=== PATIENT | female | born 1975 | race Caucasian/White ===

== ENCOUNTER 2017-03-15 10:52 | Emergency (ER) | payer OTHER ==
[~2017-03-15 10:52] MED LIST: Iopamidol 370 76% 100 ML VIAL ONE
[2017-03-15] MEDS ORDERED: Ondansetron HCl/PF 4 MG/2 ML Vial ONE (11:31)
[2017-03-15 11:35] LABS: #Basophils 0.1 thou/uL (0.0-0.2); #Eosinphils 0.1 thou/uL (0.0-0.7); #Lymphocytes 1.6 thou/uL (1.20-3.40); #Monocytes 0.5 thou/uL (0.11-0.59); #Neutrophils 4.9 thou/uL (1.40-6.50); %Basophils 1.4 % (0.0-1.0); %Eosinophils 1.6 % (0.0-10.0); %Monocytes 7.3 % (0.0-10.0); %Neutrophils 67.7 % (42.0-75.0); Hemoglobin 14.3 g/dL (12.0-16.0); Mean Corpuscular HGB CONC 30.6 g/dL (32.0-36.0); Mean Corpuscular Hemoglobin 27.3 pg (27.0-31.0); Platelet Count 262 thou/uL (130-400); RBC Distribution Width 12.4 % (11.5-14.5); Red Blood Cell (RBC) Count 5.23 mill/uL (4.20-5.40); White Blood Cell (WBC) Count 7.2 thou/uL (4.8-10.8)
[2017-03-15 11:49] LABS: ALT (SGPT) 16 U/L (8-55); AST (SGOT) 17 U/L (5-34); Albumin 4.4 g/dL (3.5-5.0); Alkaline Phosphatase 71 U/L (40-150); Anion Gap 14 mmol/L (10-20); BUN (Urea Nitrogen) 11 mg/dL (7.0-18.7); Bilirubin, Total 0.7 mg/dL (0.2-1.2); Calc. Creatinine Clearance 0 mL/min (70-130); Calcium 9.8 mg/dL (7.8-10.44); Carbon Dioxide 25 mmol/L (22-29); Chloride 104 mmol/L (98-107); Estimated GFR-MDRD 77; Glucose 82 mg/dL (70-105); Lipase 23 U/L (8-78); Potassium 3.7 mmol/L (3.5-5.1); Protein, Total 8.4 g/dL (6.0-8.3); Sodium 139 mmol/L (136-145)
[2017-03-15] MEDS ORDERED: Ketorolac Tromethamine 30 MG/ML VIAL ONE (11:51)
[2017-03-15 11:55] LABS: Bilirubin Negative (Negative); Blood, Urine Negative (Negative); Clarity Clear (Clear); Glucose, Urine (Dipstick) Negative (Negative); Leukocyte Negative (Negative); Nitrite Negative (Negative); Protein, Urine (Dipstick) Negative (Neg-Trace); Urobilinogen 0.2 mg/dL (0.2-1.0)
[2017-03-15 11:56] LABS: Specific Gravity, Urine 1.005 (1.002-1.036)
[2017-03-15] MEDS ORDERED: diphenhydrAMINE 50 MG/ML VIAL ONE (12:28)
--- NOTE | 2017-03-15 12:45 | CT ---
CT ABDOMEN AND PELVIS WITH CONTRAST: HISTORY: Abdominal pain. History of hysterectomy and LAP band surgery. COMPARISON: CT abdomen and pelvis in 2015. FINDINGS: Lung bases are clear. No pericardial effusion. Liver, gallbladder, and pancreas unremarkable. The spleen is enlarged measuring over 14.5 cm in yandel th. There is normal PHI angle of the LAP band. No hydronephrosis. The appendix is visualized and is normal. No dilated loops of large or small bowel. A right adnexal corpus luteal cyst is present. Aortoiliac contour is nonaneurysmal. No adenopathy. There are phleboliths in the pelvis. IMPRESSION: No acute inflammatory process of abdomen and pelvis. Normal appendix. POS: [facility]
== END 2017-03-15 13:35 | disposition home or self-care (01) ==
LOC: SCSER 10:52
DX: R10.31 Right lower quadrant pain (principal); I10 Essential (primary) hypertension; F41.9 Anxiety disorder, unspecified; F32.9 Major depressive disorder, single episode, unspecified; F17.210 Nicotine dependence, cigarettes, uncomplicated; Z79.899 Other long term (current) drug therapy
CPT/HCPCS: 74177; 80053; 81003; 83690; 85025; 96361; 96374; 96375; J1200; J1885; J2405

== ENCOUNTER 2017-12-25 16:59 | Inpatient (IN) | payer OTHER ==
[2017-12-25 17:35] LABS: #Basophils 0.1 thou/uL (0.0-0.2); #Eosinphils 0.2 thou/uL (0.0-0.7); #Monocytes 0.7 thou/uL (0.11-0.59); #Neutrophils 6.3 thou/uL (1.40-6.50); %Basophils 0.9 % (0.0-1.0); %Eosinophils 2.2 % (0.0-10.0); %Lymphocytes 21.8 % (21.0-51.0); %Monocytes 7.7 % (0.0-10.0); %Neutrophils 67.5 % (42.0-75.0); Mean Corpuscular HGB CONC 31.9 g/dL (32.0-36.0); Mean Corpuscular Hemoglobin 27.5 pg (27.0-31.0); Mean Corpuscular Volume 86.2 fL (78.0-98.0); Mean Platelet Volume 7.4 fL (7.4-10.4); Platelet Count 229 thou/uL (130-400); RBC Distribution Width 12.3 % (11.5-14.5); Red Blood Cell (RBC) Count 4.75 mill/uL (4.20-5.40); White Blood Cell (WBC) Count 9.4 thou/uL (4.8-10.8)
[2017-12-25 17:47] LABS: ALT (SGPT) 18 U/L (8-55); AST (SGOT) 16 U/L (5-34); Albumin 4.3 g/dL (3.5-5.0); Alkaline Phosphatase 73 U/L (40-150); Anion Gap 12 mmol/L (10-20); BUN (Urea Nitrogen) 11 mg/dL (7.0-18.7); Bilirubin, Total 0.3 mg/dL (0.2-1.2); Calc. Creatinine Clearance 0 mL/min (70-130); Calcium 9.8 mg/dL (7.8-10.44); Carbon Dioxide 24 mmol/L (22-29); Chloride 105 mmol/L (98-107); Estimated GFR-MDRD 72; Globulin 3.7 g/dL (2.4-3.5); Glucose 96 mg/dL (70-105); Lipase 24 U/L (8-78); Potassium 3.8 mmol/L (3.5-5.1); Sodium 137 mmol/L (136-145)
[2017-12-25] MEDS ORDERED: Morphine 4 MG/ML VIAL ONE (17:59)
[2017-12-25] MEDS ORDERED: Pantoprazole 40 MG VIAL ONE (18:01)
[2017-12-25] MEDS ORDERED: Famotidine/PF 20 mg/2ml Vial ONE (18:01)
[2017-12-25] MEDS ORDERED: Ondansetron PF 4 MG/2 ML Vial ONE (18:01)
[2017-12-25 18:17] LABS: CKMB 0.7 ng/mL (0-6.6); Troponin I Less than 0.010 ng/mL (< 0.028)
[2017-12-25 18:32] LABS: Bilirubin Negative (Negative); Blood, Urine Negative (Negative); Clarity Clear (Clear); Glucose, Urine (Dipstick) Negative (Negative); Leukocyte Negative (Negative); Nitrite Negative (Negative); Protein, Urine (Dipstick) Negative (Neg-Trace); Specific Gravity, Urine 1.008 (1.002-1.036); Urobilinogen 0.2 mg/dL (0.2-1.0)
--- NOTE | 2017-12-25 18:48 | RAD ---
ACUTE ABDOMINAL SERIES: INDICATIONS: Epigastric abdominal pain. COMPARISON: 09/21/2012 FINDINGS: There is a suspected nipple shadow overlying the left lower lobe. No suspicious pulmonary nodules se en within this region on CT abdomen and pelvis dated 03/15/2017. The right lung is clear. There is a gastric band in place, projecting in the expected position. The catheter appears intact to the por t. The bowel gas pattern demonstrates numerous moderately dilated loops of small bowel within the up per central abdomen, with differential air-fluid levels on the upright projection. No acute osseous abnormality is evident. IMPRESSION: 1. Findings suspicious for partial small bowel obstruction involving loops of mid to proximal small bowel within the upper abdomen. 2. Gastric band. 3. Nodular density overlying the left lower lobe may reflect a nipple shadow. A repeat chest radiog raph with nipple markers is recommended. CODE T POS: [facility]
[2017-12-25] MEDS ORDERED: Ondansetron ODT 4 MG TAB PO PRN (21:22)
[2017-12-25] MEDS ORDERED: Acetaminophen 325 MG TAB PO PRN (21:22)
[2017-12-25 22:15] VITALS: BMI 33.7
[2017-12-25] MEDS ORDERED: Morphine 2 MG/ML SYRINGE SLOW IVP PRN (22:45)
[2017-12-25] MEDS ORDERED: Famotidine 20 MG TAB PO SCH (22:45)
[2017-12-25] MEDS: Sodium Chloride 0.9% 1,000 ML IV SCH (23:01)
[2017-12-26 05:15] LABS: Anion Gap 6 mmol/L (10-20); BUN (Urea Nitrogen) 9 mg/dL (7.0-18.7); Calc. Creatinine Clearance 153 mL/min (70-130); Calcium 8.3 mg/dL (7.8-10.44); Carbon Dioxide 26 mmol/L (22-29); Chloride 109 mmol/L (98-107); Estimated GFR-MDRD 77; Glucose 90 mg/dL (70-105); Potassium 3.7 mmol/L (3.5-5.1); Sodium 137 mmol/L (136-145)
[2017-12-26 05:21] LABS: #Eosinphils 0.2 thou/uL (0.0-0.7); #Lymphocytes 1.9 thou/uL (1.20-3.40); #Monocytes 0.6 thou/uL (0.11-0.59); #Neutrophils 3.7 thou/uL (1.40-6.50); %Basophils 0.4 % (0.0-1.0); %Eosinophils 2.8 % (0.0-10.0); %Lymphocytes 29.6 % (21.0-51.0); %Monocytes 9.6 % (0.0-10.0); %Neutrophils 57.6 % (42.0-75.0); Hemoglobin 11.8 g/dL (12.0-16.0); Mean Corpuscular HGB CONC 31.7 g/dL (32.0-36.0); Mean Corpuscular Hemoglobin 28.4 pg (27.0-31.0); Mean Corpuscular Volume 89.8 fL (78.0-98.0); Mean Platelet Volume 7.9 fL (7.4-10.4); Platelet Count 209 thou/uL (130-400); RBC Distribution Width 12.4 % (11.5-14.5); Red Blood Cell (RBC) Count 4.15 mill/uL (4.20-5.40); White Blood Cell (WBC) Count 6.5 thou/uL (4.8-10.8)
[2017-12-26] MEDS ORDERED: Famotidine 20 MG TAB PO SCH (09:00)
[2017-12-26] MEDS ORDERED: Enoxaparin Sodium 40 MG/0.4 ML SYRINGE SC SCH (09:00)
[2017-12-26] MEDS ORDERED: Famotidine/PF 20 mg/2ml Vial SLOW IVP SCH (09:00)
[2017-12-26] MEDS: Acetaminophen 650 MG in Premix Bag 1 BAG IVPB PRN ×2 (09:12→16:38)
[2017-12-26] MEDS: Sodium Chloride 0.9% 1,000 ML IV SCH (09:13)
--- NOTE | 2017-12-26 10:15 | HP ---
PRIMARY CARE PHYSICIAN: Dr. Charles HISTORY OF PRESENT ILLNESS: Ms. Kuhn is a 42-year-old female who presented to the emergency room yesterday for epigastric abdominal pain and mid back pain. She reports pain has been ongoing for the last 3 weeks, has been intermittent, but progressively getting worse. The patient reports eating makes it better. No changes to the pain with position or movement. The patient reports pressing at the site of pain makes it better. The patient had a history of a bleeding ulcer 5 years ago, but reports this pain is different. Reports nausea, vomiting x4. Denies any blood in vomit and has diarrhea as well, 6 times 2017 and x2 on 12/25/2017. Also denies any bright blood or melena with diarrhea. Reports that she saw Dr. Charles last week for this pain, was given diclofenac, but stopped taking it because she does have a history of the bleeding ulcer. Reports that Zantac, Tums and Pepcid are not helping. The patient received an acute abdominal series x-ray in the ED findings suspicious for a partial small-bowel obstruction involving loops of mid to proximal small bowel within the upper abdomen. She does have a history of a gastric band that was placed in 04/2015 and denies any issues relating to it. Reports weight loss over 100 pounds. The patient denies any nausea, vomiting overnight, but does report being nauseated currently. Denies any diarrhea in the last 12 hours. The patient was admitted for observation and a surgery consult. PAST MEDICAL HISTORY: Hypertension, which she was able to go off medications after her weight loss with the lap band. Bleeding ulcer 5 years ago, EGD was performed PAST SURGICAL HISTORY: Lap band in 04/2015. The patient has left wrist surgery , tonsillectomy, hysterectomy. PSYCHIATRIC HISTORY: Reports anxiety and depression. SOCIAL HISTORY: She smokes cigarettes, a half a pack a day. Drinks socially. Denies drug use. FAMILY HISTORY: Mother had a brain aneurysm. REVIEW OF SYSTEMS: CONSTITUTIONAL: Denies chills, denies fever. EYES: Denies changes in eye vision, denies pain. ENT: Denies ear pain, denies sore throat. CARDIOVASCULAR: Denies chest pain, palpitations. RESPIRATORY: Denies cough or shortness of breath. GASTROINTESTINAL: Reports epigastric and right upper quadrant pain. Reports diarrhea. Reports nausea and vomiting. GENITOURINARY: Female, denies dysuria or hematuria. MUSCULOSKELETAL: Denies neck pain. Reports mid back pain. SKIN: Denies rash, skin changes. NEUROLOGIC: Denies focal weakness, sensory changes. HEME: Denies abnormal blood clotting. PSYCHIATRIC: Denies current anxiety or depression. PHYSICAL EXAMINATION: VITAL SIGNS: Temperature 98.1, pulse 76, respirations 20, pulse ox is 98 on room air, blood pressure 119/79. CONSTITUTIONAL: The patient appears nontoxic, does appear to be in some mild pain distress. HEENT: Head is atraumatic, normocephalic. ENT: Mucous membranes are moist. NECK: Trachea is midline. No tenderness. Full range of motion. RESPIRATORY/CHEST: Breath sounds are equal, symmetrical movement. Chest pain is equal. No wheezing, rales or rhonchi noted. CARDIAC: S1, S2 was heard, normal rhythm. ABDOMEN: Female. The patient is tender to epigastric right upper quadrant. Bowel sounds are normal x4. No distention. No peritoneal signs. BACK: Tenderness to primarily right paraspinal mid back. No CVA tenderness. EXTREMITIES: Upper extremity, no cyanosis, no edema. Lower extremities; full range of motion. No cyanosis, no edema. NEUROLOGIC: Speech is normal. No focal neurological deficits. SKIN: Dry, normal color. PSYCHIATRIC: Normal affect. Acute abdomen series as described in the HPI has findings suspicious of a partial small-bowel obstruction involving the loops of mid and proximal small bowel within the upper abdomen. A gastric band is appreciated. Does have some nodular density overlying the left lower lobe which may reflect a nipple shadow. LABORATORY DATA: Lipase is 24, sodium 137, potassium 3.8, chloride 105, carbon dioxide is 24, anion gap is 12, BUN is 11, creatinine 0.87, estimated GFR is 72 , glucose is 96, calcium is 9.8, globulin is 3.7, alkaline phosphatase 73, AST is 16, ALT is 18. CBC is 9.4, hemoglobin 13, hematocrit 40.9, platelet count is 229. First troponin is negative. Urinalysis negative. ASSESSMENT AND PLAN: 1. Epigastric pain, partial small-bowel obstruction. We will make the patient n.p.o. We will have a General Surgery consult. Will treat pain with pain medications. Hospital course will depend on clinical findings. [facility]ITAL[facility]
--- NOTE | 2017-12-26 11:20 | ULT ---
RIGHT UPPER QUADRANT ULTRASOUND: Comparison: None. History: Right upper quadrant pain. Epigastric abdominal pain. Technique: Multiplanar grayscale and color doppler images were obtained in a right upper quadrant abd ominal ultrasound. FINDINGS: The liver demonstrates increased echogenicity without focal lesions or intrahepatic ductal dilatation . There may be a small amount of sludge in the gallbladder. There is no gallbladder wall thickening o r pericholecystic fluid. The common bile duct is normal measuring 2 mm. Pancreas cannot be visualized. The right kidney is normal in echogenicity without hydronephrosis or c alculus and measures 12.3 cm in length. IMPRESSION: Fatty liver. POS: [facility]
[2017-12-26] MEDS: Fentanyl 100 MCG/2 ML VIAL SLOW IVP PRN ×2 (12:20→18:52)
[2017-12-26] MEDS: D5 1/2 NS w/20 mEq KCL 1,000 ML IV SCH (15:36)
[2017-12-26] MEDS ORDERED: Iopamidol 370 76% 100 ML VIAL ONE (15:54)
--- NOTE | 2017-12-26 15:54 | PDOC.EVN ---
Event Note - Event Note Event Note: care discussed with Jolly Suresh CONTROL ROOM TECHNICIAN. Gen Surg in consult. status changed to inpt. agree with plans.
--- NOTE | 2017-12-26 19:36 | CT ---
CT OF THE ABDOMEN AND PELVIS WITH IV CONTRAST: 12/26/17 INDICATION: Abdominal pain, nausea and vomiting. COMPARISON: Prior exam dated 03/15/17. FINDINGS: There is stable gastric band and splenomegaly. The spleen measures up to 15 cm which is relatively st able to a comparison dated 03/15/17. There is fatty infiltration of the liver. The pancreas and adrenal glands appear within normal limits. The kidneys are normal appearing. No hayley e fluid or enlarged lymph nodes are evident. There is a mild amount of retained stool within the colo n. There is a normal appendix in the right lower quadrant. Small amount of free fluid is seen within the pelvis. There are a few scattered diverticula involving the colon. The small bowel is within norm al caliber. No definite acute osseous abnormality is evident. IMPRESSION: 1. No CT explanation for the patient's nausea, vomiting and abdominal pain. 2. Stable mild splenomegaly. 3. Fatty liver. 4. Gastric band. 5. Mild amount of retained stool within the colon. 6. Colon diverticulosis. 7. Nonspecific tiny amount of small free fluid within the pelvis. POS: [facility]
[2017-12-27] MEDS: D5 1/2 NS w/20 mEq KCL 1,000 ML IV SCH ×4 (00:44→19:38)
[2017-12-27] MEDS: Fentanyl 100 MCG/2 ML VIAL SLOW IVP PRN ×6 (00:45→21:59)
[2017-12-27] MEDS: Ondansetron PF 4 MG/2 ML Vial IVP PRN ×4 (01:43→17:55)
--- NOTE | 2017-12-27 04:04 | CON ---
DATE OF CONSULTATION: 12/26/2017 REASON FOR CONSULTATION: Abdominal pain. HISTORY OF PRESENT ILLNESS: Ms. Kuhn is a 42-year-old woman with a past surgical history of a gastr ic band placed 4 years ago in [place]. She has had problems with pain in her back for several weeks a nd pain in her abdomen with nausea for about 1 week, it got worse last night, so she decided to come to the hospital and an acute abdominal series was suggestive of some dilated loops of proximal small bowel concerning for obstruction or ileus. She was admitted and placed on bowel rest, but her abdomi nal pain and nausea has persisted. She states that she has been passing a lot of gas, in fact, more than usual and that her bowel movements have been normal for her. She states that ever since her gas tric band. She does not really have formed bowel movements, but that they are loose. She has had so me episodes of diarrhea with multiple episodes of loose bowel movements each day, but this seems to h ave slowed down. She did have a bowel movement yesterday which was not very large. She went to see her doctor late last week because of her pain getting worse and was given diclofenac, but stopped kai t because she has a history of bleeding ulcers. She has not noticed any blood or melena in her stool and she has not thrown up any blood; however, she states that it is mostly just mucousy stuff. She has been maintaining her weight since her band she lost about 100 pounds, but gained about 25 pounds back; however, her weight has been stable since then. She has not had any fevers or chills and has n ot had any ill contacts. PAST MEDICAL HISTORY: Bleeding ulcers, hypertension and morbid obesity, none of which are currently an issue. PAST SURGICAL HISTORY: Lap band, wrist surgery, tonsillectomy, and hysterectomy. SOCIAL HISTORY: She does smoke about half pack a day, drinks rarely and does not use any illicit aj gs. FAMILY HISTORY: Noncontributory. REVIEW OF SYSTEMS: Ten-system review of systems is negative except per HPI. PHYSICAL EXAMINATION: VITAL SIGNS: The patient has been afebrile since her admission with heart rate in the 60s, respirato ry rate of 18, 100% saturated on room air, blood pressure 119/55. GENERAL: Reveals a healthy appearing woman in no acute distress, although she does appear anxious an d was intermittently tearful during the interview when describing her current illness. HEENT: Unremarkable. NECK: Supple, without lymphadenopathy or thyroid nodules. HEART: Regular in its rate and rhythm without murmurs, rubs or gallops. LUNGS: Clear to auscultation bilaterally. ABDOMEN: Soft and nondistended. She is diffusely tender to palpation in the upper abdomen, but the lower abdomen is nontender. She has normal bowel sounds and is not tympanitic. No palpable masses o r hernias. EXTREMITIES: Warm and well perfused without edema. NEUROLOGIC: No focal deficits. PSYCHIATRIC: Alert, oriented, and appropriate. LABORATORY DATA: Unremarkable. Her white count is normal. Her electrolytes are normal and her LFTs are normal. Her UA was clear. Her acute abdominal series showed some gas filled loops of bowel in the upper abdomen, which appeared to be either stomach or proximal small bowel; however, there was ga s in the colon as well. ASSESSMENT: Partial small-bowel obstruction seems relatively less likely given the large amount of g as that the patient has been passing and the fact that she has been having multiple bowel movements w hich are normal consistency for her. I recommended a CT scan to further evaluate this with contrast as the patient is able to tolerate this. She does still have her gallbladder, so cholecystitis is wi thin the differential diagnosis, but she did get an ultrasound of her gallbladder which was fairly un remarkable. She states that she was somewhat tender when they did the ultrasound, but she did not jernigan ve any wall thickening or pericholecystic fluid and only a small amount of sludge in the gallbladder. I think a HIDA scan is reasonable to further evaluate her gallbladder. If her CT does not show diana dence of obstruction or other explanation for her pain and nausea and if the HIDA scan is normal, the n Gastroenterology will need to be involved.
--- NOTE | 2017-12-27 11:30 | PDOC.GSPN ---
Surgery Progress Note: Subj - Subjective Narrative: Patient was placed on a diet last night after her CT came back normal but had epigastric pain and nausea all night long after eating. She has a HIDA scan ordered for this morning. She states that she is passing a lot of gas but also burping. Minimally tender to palpation in the epigastric area without rigidity rebound or guarding. Assessment/plan: Abdominal pain and nausea of unclear etiology. No evidence of persistent obstruction on CT scan and no evidence of cholecystitis or cholelithiasis on gallbladder ultrasound although she did have possibly a small amount of sludge. HIDA scan is pending. If this is normal I would recommend gastroenterology evaluation. Dr. Haywood will be following her for the next few days as I am out of town. Surgery Progress Note: Obj - Vital signs Vital signs: Vital Signs - Most Recent Temp Pulse Resp BP Pulse Ox 97.9 F 69 16 107/69 100 12/27/17 08:00 12/27/17 08:00 12/27/17 08:00 12/27/17 08:00 12/27/17 08:00 Surgery Progress Note: Results - Labs Result Diagrams: 12/26/17 04:33 12/26/17 04:33
--- NOTE | 2017-12-27 13:50 | NM ---
HEPATOBILIARY SCAN: Date: 12/27/17 HISTORY: Right upper quadrant pain. RADIOPHARMACEUTICAL: 5.5 mCi technetium-99m mebrofenin injected intravenously. FINDINGS: There is good tracer extraction by the liver with prompt excretion into the biliary tract and small b owel loops, and normal filling of the gallbladder. The calculated gallbladder ejection fraction following an oral fatty meal measures 76%. IMPRESSION: Normal exam. POS: [facility]
--- NOTE | 2017-12-27 14:53 | PDOC.PN ---
- Subjective Encounter Start Date: 12/27/17 Encounter Start Time: 14:52 Subjective: still complaining of abd pain/nausea - Objective MAR Reviewed: Yes Vital Signs & Weight: Vital Signs (12 hours) Temp Pulse Resp BP Pulse Ox 12/27/17 12:40 98.7 F 72 18 128/82 100 12/27/17 08:00 97.9 F 69 16 107/69 100 12/27/17 03:50 98.2 F 83 16 122/80 96 Weight Weight 234 lb 12.8 oz I&O: 12/26/17 12/27/17 12/28/17 06:59 06:59 06:59 Intake Total 858 Output Total 700 Balance 158 Result Diagrams: 12/26/17 04:33 12/26/17 04:33 Phys Exam - Physical Examination Neck: no JVD Respiratory: clear to auscultation bilateral Cardiovascular: RRR, no significant murmur Gastrointestinal: soft, non-tender, no distention, positive bowel sounds Musculoskeletal: no edema Dx/Plan (1) Abdominal pain Code(s): R10.9 - UNSPECIFIED ABDOMINAL PAIN Status: Acute Qualifiers: Abdominal location: generalized Qualified Code(s): R10.84 - Generalized abdominal pain (2) Nausea & vomiting Code(s): R11.2 - NAUSEA WITH VOMITING, UNSPECIFIED Status: Acute Qualifiers: Vomiting type: unspecified Vomiting Intractability: unspecified Qualified Code(s): R11.2 - Nausea with vomiting, unspecified (3) HTN (hypertension) Code(s): I10 - ESSENTIAL (PRIMARY) HYPERTENSION Status: Acute Qualifiers: Hypertension type: essential hypertension Qualified Code(s): I10 - Essential (primary) hypertension - Plan HIDA scan normal. CT sf abd-mild spenomegaly, fatty liver, lap band -: cbc, cmp, lipase Nl -: consult GI per Gen Surg recommendation * .
[2017-12-27] MEDS: Pantoprazole 40 MG VIAL IVP SCH (21:59)
--- NOTE | 2017-12-27 23:45 | CON ---
DATE OF CONSULTATION: 12/27/2017 REASON FOR CONSULTATION: Recent abdominal pain. HISTORY: Mrs. Kuhn is a 42-year-old female who was admitted to the hospital 2 days ago with a 3-wee k history of having upper abdominal pain localizing mostly to the epigastrium with radiation to the m id back. The pain initially started on the back and going to the front. She described the pain as w axing and waning and intermittent, characterized as mostly dull pressure, but at times becomes very s evere. She has had some nausea, vomiting. There has not been any indication of GI bleeding such as coffee-ground emesis or melenic stools. The patient prior GI medical history is notable for a lap ba nd placement in [place] approximately 3 years ago with resultant 100-pound weight loss. She also repo rtedly had a bleeding ulcer 5 years ago that was treated at [facility] in [facility] and required blood transfusion at that time. The current pain is not precipitated by eating or activity. Pain at times is improved with eating. She does smoke half a pack of cigarettes a day . She infrequently consumes alcohol. She has no NSAID usage. Thus far, ultrasound performed showed changes consistent with fatty liver with normal gallbladder and common bile duct measured [address] was essentially unremarkable. She had a HIDA scan this morning that showed an ejection fraction of 76% followed by Ensure intake. There is no wor sening of the pain with gallbladder contraction. PAST MEDICAL HISTORY: 1. Hypertension, reportedly resolved with weight loss. 2. Peptic ulcer disease with bleeding 5 years ago, required transfusion. 3. Gastric lap band placement 3 years ago in [place]. 4. Status post hysterectomy/tonsillectomy and wrist surgery. ALLERGIES: None. MEDICATIONS AT HOME: None. SOCIAL HISTORY: The patient is . She smokes on the average 1 pack of cigarettes every 3 days . Infrequently consume alcohol. No illicit drug use. FAMILY HISTORY: Negative for any known GI problem, liver disease or GI malignancy. REVIEW OF SYSTEMS: A 10-point review of systems did not show any other pertinent positive or negativ e. PHYSICAL EXAMINATION: VITAL SIGNS: Temperature is 97.5, blood pressure 136/89, pulse of 71. GENERAL: She is alert, conversant, does not appear in any distress. HEENT: Shows anicteric sclerae. Oropharynx clear. NECK: Supple. CARDIOVASCULAR: Shows normal S1, S2. Regular rate and rhythm. CHEST: Shows normal breath sounds. ABDOMEN: Mildly protuberant, but no distention. There is no elicit tenderness to deep palpation. T here is no palpable mass or organomegaly. She has active bowel sounds. EXTREMITIES: Shows no edema. LABORATORY DATA: WBC 6.5, hemoglobin 11.8, platelet count is 209,000. Electrolytes within normal ra nge. Creatinine 0.82, bilirubin 0.3, AST of 16, ALT of 18, alkaline phosphatase 73, lipase of 24. ASSESSMENT: 1. Upper abdominal pain/epigastric pain with radiation to the back, dull pressure and at times burni ng in quality with variable intensity. Ultrasound and CT of the abdomen have been essentially unrema rkable and has not offered any explanation for her pain. She did have a history of lap band placemen t 3 years ago and a history of bleeding peptic ulcer disease 5 years ago. Etiology of the pain is no t certain at this point. We will need to exclude recurrent peptic ulcer disease or erosions of the l ap band. 2. Negative gallbladder evaluation with ultrasound and HIDA scan at the present time. Gallbladder p athology is still possible, but appears unlikely at the present time. 3. History of bleeding peptic ulcer disease 5 years ago. Helicobacter pylori status unknown. 4. History of lap band placement 3 years ago. RECOMMENDATIONS: 1. Diagnostic upper endoscopy tomorrow. 2. The patient requests a regular diet tonight, this would be fine given that she tolerated chicken broth this afternoon and there is no evidence of obstruction on imaging studies or based on clinical symptoms. 3. Would start on empiric PPI, pantoprazole 40 mg IV daily. 4. Further recommendation to follow pending endoscopic finding.
[2017-12-28] MEDS: D5 1/2 NS w/20 mEq KCL 1,000 ML IV SCH ×2 (04:19→12:43)
[2017-12-28] MEDS: Fentanyl 100 MCG/2 ML VIAL SLOW IVP PRN ×4 (04:40→21:00)
[2017-12-28] MEDS: Pantoprazole 40 MG VIAL IVP SCH ×2 (08:18→20:59)
[2017-12-28] MEDS: Ondansetron PF 4 MG/2 ML Vial IVP PRN (08:19)
--- NOTE | 2017-12-28 09:04 | PDOC.PN ---
- Subjective Encounter Start Date: 12/28/17 Encounter Start Time: 09:03 Subjective: stil has abd discomfort - Objective MAR Reviewed: Yes Vital Signs & Weight: Vital Signs (12 hours) Temp Pulse Resp BP Pulse Ox 12/28/17 08:00 98.1 F 75 16 113/75 100 12/28/17 04:00 98.9 F 93 20 117/73 98 12/28/17 00:00 98.6 F 73 18 130/79 96 Weight Weight 234 lb 12.8 oz I&O: 12/27/17 12/28/17 12/29/17 06:59 06:59 06:59 Intake Total 3842 Balance 3842 Result Diagrams: 12/26/17 04:33 12/26/17 04:33 Phys Exam - Physical Examination Neck: no JVD Respiratory: clear to auscultation bilateral Cardiovascular: RRR, no significant murmur Gastrointestinal: soft, non-tender, no distention, positive bowel sounds Musculoskeletal: no edema Dx/Plan (1) Abdominal pain Code(s): R10.9 - UNSPECIFIED ABDOMINAL PAIN Status: Acute Qualifiers: Abdominal location: generalized Qualified Code(s): R10.84 - Generalized abdominal pain (2) Nausea & vomiting Code(s): R11.2 - NAUSEA WITH VOMITING, UNSPECIFIED Status: Acute Qualifiers: Vomiting type: unspecified Vomiting Intractability: unspecified Qualified Code(s): R11.2 - Nausea with vomiting, unspecified (3) HTN (hypertension) Code(s): I10 - ESSENTIAL (PRIMARY) HYPERTENSION Status: Acute Qualifiers: Hypertension type: essential hypertension Qualified Code(s): I10 - Essential (primary) hypertension - Plan iv ppi -: EGD today * .
[2017-12-28] MEDS ORDERED: Levofloxacin 500 mg/D5W 100 ml Premix Bag ONE (14:45)
--- NOTE | 2017-12-28 15:20 | PRG ---
DATE OF SERVICE: 12/28/2017 HISTORY OF PRESENT ILLNESS: Marisa Kuhn seen today for Dr. Webster. Ms. Kuhn is to have an upper endoscopy today by Dr. Finley. The patient has been having epigastric pain, often postprandial, asso ciated with nausea, bloating, belching, indigestion, pressure. On exam, she is tender in her right u pper quadrant. Gallbladder ultrasound shows gallbladder sludge. Bile duct is of normal caliber. Li marleni function tests are normal. HIDA scan ejection fraction is normal. CAT scan of abdomen and pelvi s is normal. Abdominal x-rays reveal properly oriented band. The patient saw Dr. Ga, [facility] approximately a year ago having her band adjusted. She has no recollection of how much saline is in her band reservoir. She states she swallows without restriction but has had ep isodes of upper abdominal pain, nausea with back radiation for the past 3 weeks intermittently. CAT scan of the abdomen and pelvis, ultrasound, and HIDA scan have only revealed gallbladder sludge. OBJECTIVE: LUNGS: Clear to auscultation. CARDIAC: Regular rate and rhythm without murmur or gallop. ABDOMEN: Soft, tenderness in right upper quadrant with mild guarding. EXTREMITIES: Unremarkable. ASSESSMENT AND PLAN: 1. Chronic cholecystitis with gallbladder sludge. I would recommend laparoscopic video cholecystect vinod tomorrow. She is to have an upper endoscopy today by Dr. Finley. After that operation, the patie nt could be discharged home. 2. Diet and activity postoperatively as tolerated. No lifting restrictions. She could return to wo rk next Monday.
[2017-12-28] MEDS ORDERED: Promethazine HCl 25 MG/ML VIAL SLOW IVP PRN (17:00)
[2017-12-28] MEDS ORDERED: Ondansetron HCl/PF 4 MG/2 ML Vial IVP PRN (17:00)
[2017-12-28] MEDS ORDERED: Promethazine HCl 25 MG/ML VIAL IM PRN (17:00)
--- NOTE | 2017-12-28 21:24 | OP ---
DATE OF PROCEDURE: 12/28/2017 PROCEDURE: Esophagogastroduodenoscopy with biopsy. PREOPERATIVE DIAGNOSIS: Epigastric abdominal pain. PROCEDURE IN DETAIL: Informed consent was obtained from the patient. She was sedated with total int ravenous anesthesia. The bite block was placed and the endoscope was advanced easily to the second p ortion of the duodenum and retroflexion was performed in the stomach. The esophagus was normal. The GE junction was normal. There was the impression from the gastric band and the gastric cardia just a centimeter or two below the GE junction. This appears to be in appropriate position and the mucosa within it had no abnormalities. The stomach was normal including retroflexed views. The pylorus wa s normal. There was a 1 cm cratered ulcer in the first portion of the duodenum on the lateral wall. The second portion of the duodenum was normal. Biopsies were obtained from the gastric antrum and b mago to rule out H. pylori. IMPRESSION: 1. A 1 cm cratered duodenal ulcer in the first portion of the duodenum. 2. Gastric band is in appropriate position with the impression in the cardia of the stomach just bel ow the gastroesophageal junction. 3. Otherwise normal esophagogastroduodenoscopy. RECOMMENDATIONS: 1. Pantoprazole 40 mg by mouth daily. 2. Smoking cessation. 3. Await histopathology, treat H. pylori if positive as an outpatient.
[2017-12-29] MEDS: Fentanyl 100 MCG/2 ML VIAL SLOW IVP PRN ×2 (01:36→06:03)
[2017-12-29] MEDS: D5 1/2 NS w/20 mEq KCL 1,000 ML IV SCH (04:52)
[2017-12-29] MEDS: Ondansetron PF 4 MG/2 ML Vial IVP PRN (06:01)
[2017-12-29] MEDS ORDERED: Lorazepam 0.5 MG TAB PO PRN (07:41)
[2017-12-29] MEDS ORDERED: Lactated Ringer's 1,000 ML IV SCH (08:00)
[2017-12-29] MEDS: Pantoprazole 40 MG VIAL IVP SCH (08:41)
[2017-12-29] MEDS ORDERED: Midazolam HCl 2 mg/2 ml Vial ONE ×2 (11:20→12:54)
[2017-12-29] MEDS ORDERED: Levofloxacin 500 mg/D5W 100 ml Premix Bag ONE (11:26)
[2017-12-29] MEDS ORDERED: Bupivacaine HCl 0.5%/Epinephrine 1:200,000/PF 30 ml Vial ONE (11:46)
[2017-12-29] MEDS ORDERED: Fentanyl 100 MCG/2 ML VIAL ONE ×4 (11:52→13:43)
[2017-12-29] MEDS ORDERED: traMADol HCl 50 MG TAB PO PRN ×3 (12:25→15:22)
[2017-12-29] MEDS ORDERED: Acetaminophen 500 MG TAB PO PRN (12:25)
[2017-12-29] MEDS ORDERED: Promethazine HCl 25 MG/ML VIAL IM PRN (12:42)
[2017-12-29] MEDS ORDERED: Promethazine HCl 25 MG/ML VIAL SLOW IVP PRN (12:42)
[2017-12-29] MEDS ORDERED: Ondansetron HCl/PF 4 MG/2 ML Vial IVP PRN (12:42)
[2017-12-29] MEDS ORDERED: HYDROmorphone 2 MG/ML VIAL SLOW IVP PRN (12:42)
[2017-12-29] MEDS ORDERED: PACU-Morphine 4MG/ML VIAL SLOW IVP PRN (12:42)
[2017-12-29] MEDS ORDERED: Meperidine HCl/PF 25 MG/ML VIAL SLOW IVP PRN (12:42)
[2017-12-29] MEDS ORDERED: Morphine Sulfate 2 MG/ML SYRINGE SLOW IVP PRN (12:42)
[2017-12-29] MEDS ORDERED: Promethazine HCl 25 MG/ML VIAL ONE (13:06)
--- NOTE | 2017-12-29 13:14 | OP ---
DATE OF PROCEDURE: 12/29/2017 PREOPERATIVE DIAGNOSES: Gallbladder sludge, chronic cholecystitis, bariatric surgery status, laparos copic sleeve gastrectomy, tobacco abuse, duodenal ulcer 1 cm, esophagogastroduodenoscopy by Dr. Finley . PROCEDURE: Laparoscopic video cholecystectomy. SURGEON: Nimesh Haywood M.D. ANESTHESIA: General. Local of 0.5% Marcaine with epinephrine. INDICATIONS: The patient abuses tobacco. Encouraged to stop smoking. She has a duodenal ulcer, 1 c m. PPIs prescribed. Laparoscopic cholecystectomy undertaken. PROCEDURE IN DETAIL: The patient was taken to the operating room where under general anesthesia, abd omen was prepared with ChloraPrep and draped in routine fashion. Local anesthetic was infiltrated in to the skin and subcutaneous tissue about each port site. Infraumbilical incision made and pneumoper itoneum to 15 mmHg obtained with the Veress needle, replacing it with a 5 port and laparoscope insert ed. Right subxiphoid incision was made and a 11 port placed. Right subcostal incision was made mid clavicular anterior axillary lines and 5 ports placed. Liver appeared to be normal. Fundus of gallb ladder grasped and reflected cephalad. Infundibulum grasped and reflected laterally. Cystic artery and duct dissected free. Critical view obtained. Cystic artery and duct doubly clipped proximally, divided and gallbladder dissected free from the liver bed obtaining good hemostasis prior to division of final peritoneal attachments. Gallbladder and contents removed and submitted to Pathology. Good hemostasis ensured with the cautery. Irrigant and pneumoperitoneum evacuated. All the instruments removed and all skin incisions approximated with interrupted subdermal 4-0 Monocryl and DermaGlue peter lied.
[2017-12-29 15:26] VITALS: BP 124/63; TEMP 97.6
--- NOTE | 2017-12-29 16:03 | DIS ---
TRANSFER OF CARE DATE OF ADMISSION: 12/26/2017 DATE OF DISCHARGE: 12/29/2017 PHYSICIAN: Lisbet Charles M.D. FINAL DIAGNOSES: Chronic cholecystitis, gastric ulcer, tobacco abuse, hypertension, status post stacy annamarie banding procedure. DISCHARGE MEDICATIONS: Protonix 40 mg a day, Ultram 50 mg 1-2 every 6 hours as needed for pain, Zofr an oral dissolving tablet 4 mg p.o. q.6 hours. p.r.n. nausea. ALLERGIES: PENICILLINS. DIET: Bariatric. PENDING AT THE TIME OF DISCHARGE: Pathology of the gallbladder. CODE STATUS: FULL. HOSPITAL COURSE: The patient admitted with abdominal pain. Her initial studies; CBC normal. Comp m etabolic profile normal. CT scan of the abdomen and pelvis, stable, mild splenomegaly, fatty liver, gastric band, seen in consultation by Dr. Chaparro Webster because of the small bowel obstruction. She had a HIDA scan which was unremarkable. Consultation with Dr. Ruben Maloney EGD revealed a gastric ulc er. Dr. Nimesh Haywood on-call for Dr. Webster. We examined her, took her history, made a diagnosis of chronic cholecystitis with sludge. On 12/29/2017, she was taken to the operating room and had a laparoscopic cholecystectomy. She is now awake and alert. Vital signs are stable. Abdomen is benig n. Dr. Haywood has written prescriptions and discharge for today. She is being discharged for follow up with Dr. Haywood in 2-3 weeks. It was also recommended that she see her primary care provider.
== END 2017-12-29 16:20 | disposition home or self-care (01) | DRG 418 ==
LOC: SCSER 16:59 → OBSVTOIN 21:26 → 2SW 21:26 → ONC 12-26 15:29
PROVIDERS: ADMIT Internal Medicine; ATTEND Internal Medicine
PROC: 0DB78ZX Excision of Stomach, Pylorus, Via Natural or Artificial Opening Endoscopic, Diagnostic (ICD-10-PCS; 2017-12-28)
PROC: 0FT44ZZ Resection of Gallbladder, Percutaneous Endoscopic Approach (ICD-10-PCS; principal; 2017-12-29)
DX: K81.1 Chronic cholecystitis (principal); K56.600 Partial intestinal obstruction, unspecified as to cause; I10 Essential (primary) hypertension; R10.84 Generalized abdominal pain; R11.2 Nausea with vomiting, unspecified; R16.1 Splenomegaly, not elsewhere classified; K76.0 Fatty (change of) liver, not elsewhere classified; Z68.33 Body mass index [BMI] 33.0-33.9, adult; F17.210 Nicotine dependence, cigarettes, uncomplicated; F41.9 Anxiety disorder, unspecified; F32.9 Major depressive disorder, single episode, unspecified; Z90.3 Acquired absence of stomach [part of]; K26.9 Duodenal ulcer, unspecified as acute or chronic, without hemorrhage or perforation; K82.9 Disease of gallbladder, unspecified; Z98.84 Bariatric surgery status; K25.9 Gastric ulcer, unspecified as acute or chronic, without hemorrhage or perforation; E66.01 Morbid (severe) obesity due to excess calories
CPT/HCPCS: 36415; 74022; 74177; 76705; 78227; 80048; 80053; 81003; 82553; 83690; 84484; 85025; 87086; 88304; 88305; 88312; 93005; 96361; 96374; 96375; 96376; A9537; C9113; J0131; J0670; J1956; J2250; J2270; J2405; J2550; J3010; S0028

== ENCOUNTER 2018-01-02 14:59 | Inpatient (IN) | payer OTHER ==
[~2018-01-02 14:59] MED LIST changes: +ISOVUE-370 76%-LOCM 1 ML ONE; -Iopamidol 370 76% 100 ML VIAL ONE; +Iopamidol 370 76% 50 ML VIAL FS ONE
[2018-01-02] MEDS ORDERED: Ondansetron ODT 4 MG TAB PO PRN ×2 (15:34→18:47)
[2018-01-02] MEDS ORDERED: Ondansetron PF 4 MG/2 ML Vial SLOW IVP PRN (15:34)
[2018-01-02] MEDS ORDERED: Acetaminophen 1,000 MG in Premix Bag 1 BAG IVPB PRN (15:35)
[2018-01-02] MEDS ORDERED: Lactated Ringer's 1,000 ML IV SCH (15:45)
[2018-01-02] MEDS ORDERED: Acetaminophen 1,000 MG in Premix Bag 1 BAG IVPB SCH (15:45)
[2018-01-02] MEDS ORDERED: Ketorolac Tromethamine 30 MG/ML VIAL IVP SCH (15:45)
[2018-01-02 16:04] VITALS: BMI 34.4
[2018-01-02] MEDS: Lactated Ringer's 1,000 ML IV SCH (16:15)
[2018-01-02] MEDS ORDERED: traMADol HCl 50 MG TAB PO PRN ×2 (18:45)
[2018-01-02] MEDS ORDERED: Acetaminophen 500 MG TAB PO PRN ×2 (18:45→18:47)
[2018-01-02] MEDS ORDERED: Magnesium Citrate 300 ML BOT PO SCH (18:45)
--- NOTE | 2018-01-02 19:35 | CT ---
CONTRAST ENHANCED CT IMAGES OF THE ABDOMEN AND PELVIS 01/02/18 HISTORY: Patient with abdominal pain. Recent cholecystectomy. Contrast enhanced CT images of the abdomen and pelvis is obtained after administration of IV and oral contrast. CT images demonstrate the lung bases to be unremarkable. Postoperative gas seen in the periumbilical subcutaneous fat. The patient has had a previous gastric lap band. The liver and spleen are unremarkable. The gallbladd er has been surgically removed. The pancreas is unremarkable. Adrenal gland and kidneys are unremarkable. No evidence of gallbladder fossa abscess or fluid collect ions seen. No evidence of free intraperitoneal air or fluid seen. No dilated loops of small bowel seen. A normal appendix is visualized. A small amount of previously ingested PO contrast is now within the rectum and in the appendix. IMPRESSION: No significant evidence of intra-abdominal or pelvic abscesses. Postoperative changes seen. POS: BENY
[2018-01-02] MEDS: Ketorolac Tromethamine 30 MG/ML VIAL IVP PRN (20:30)
[2018-01-02] MEDS ORDERED: Pantoprazole 40 MG VIAL IVP SCH (21:00)
[2018-01-03] MEDS: Lactated Ringer's 1,000 ML IV SCH ×2 (00:19→08:21)
--- NOTE | 2018-01-03 00:53 | HP ---
HISTORY OF PRESENT ILLNESS: Marisa Kuhn is a 42-year-old female who presented to the [facility] hospitalist service with abdominal pain. Hospital workup revealed duodenal ulcer 1 cm. Upper e ndoscopy with Dr. Prasad Finley, she was treated with proton-pump inhibitors. She was advised to sto p smoking and to avoid NSAIDs. She was found to have gallbladder sludge, underwent laparoscopic vide o cholecystectomy. Pathology revealing chronic cholecystitis and sludge. Postoperatively, she did w ell and discharged home with Tylenol and Ultram. She was advised smoking cessation. Patient reporte d to my office yesterday complaining of difficulty urination. She has had a bladder sling in the pas t and has had dysuria in the past, although cultures have been negative. She has not seen Urology. She is somewhat frustrated by this. She reported overflow incontinence symptoms without good urinati on. She complained of abdominal bloating and right upper quadrant pain. Patient was seen in my offi ce yesterday and CBC, comprehensive metabolic profile obtained revealed a white count of 6, hemoglobi n 13. Her comprehensive metabolic profile was unremarkable. AST 43, bilirubin 0.7. Alkaline phosph atase and ALT were normal. She had in and out cath suspecting urinary retention, but catheterization only had 200 mL of urine in her bladder. Urinalysis was essentially unremarkable, 7-10 hyaline cast s, nitrite negative. No significant pyuria. Culture was sent and is pending. It is no growth to da te in 24 hours[address] Dr[address] Nelson, urology today and bladder scan did not reveal any signif icant urinary retention. Patient, however, was complaining of significant right upper quadrant pain. She has seen in my office considering, she had normal laboratories yesterday, this was not repeated . Her vital signs were normal. She reported absence of a bowel movement in the past several days. Yesterday, when I saw her and advised her to take laxatives and she states she I believe is wha t she obtained is hard to tell from her description, but she did not take because of nausea. S he was seen back in my office today complaining of pain after seeing Dr. Nelson. She had tenderness in her right upper quadrant. Abdomen was obese, but soft in other quadrants. Laparoscopic sites wel l healed. She was in too much pain and desired admission for evaluation. She demonstrated mild dehy dration. Patient is now admitted for CAT scan of the abdomen and pelvis due to abdominal pain, posto perative cholecystectomy complications, although liver function tests were normal yesterday. We will give her antinausea and hydrate her, give her fluid bolus and observe and made further recommendatio ns based on the CAT scan findings. ALLERGIES: PENICILLIN. SOCIAL HISTORY: Tobacco pack per day. Advised smoking cessation, last discharge. MEDICATIONS: At home, she was discharged home with Zofran, Tylenol, Ultram, and Protonix. PAST MEDICAL HISTORY: History of peptic ulcer disease, hypertension, morbid obesity. PAST SURGICAL HISTORY: Lap band. She does not know how much is in her band. Wrist surgery, tonsill ectomy, hysterectomy. PHYSICAL EXAMINATION: VITAL SIGNS: Heart rate 74, respiration rate 16. HEAD, EYES, EARS, NOSE, AND THROAT: Unremarkable. LUNGS: Clear to auscultation. CARDIAC: Regular rate and rhythm without murmur or gallop and laparoscopic incisions. ABDOMEN: Well-healed. No wound problems, no drainage, no ecchymosis, no infection. She has tendern ess in right upper quadrant and right abdomen with mild guarding, but no peritoneal signs. Remainder of abdomen is soft and nontender. We will give her fluid boluses. Obtain CT scan of abdomen and pelvis make further recommendations ba sed on these findings.
[2018-01-03] MEDS: Ketorolac Tromethamine 30 MG/ML VIAL IVP PRN ×2 (03:49→09:54)
[2018-01-03] MEDS: traMADol HCl 50 MG TAB PO PRN ×2 (03:50→09:53)
[2018-01-03 05:22] LABS: #Eosinphils 0.3 thou/uL (0.0-0.7); #Lymphocytes 1.4 thou/uL (1.20-3.40); #Monocytes 0.5 thou/uL (0.11-0.59); #Neutrophils 2.6 thou/uL (1.40-6.50); %Basophils 0.6 % (0.0-1.0); %Eosinophils 6.7 % (0.0-10.0); %Lymphocytes 29.6 % (21.0-51.0); %Monocytes 9.3 % (0.0-10.0); %Neutrophils 53.9 % (42.0-75.0); Hemoglobin 11.9 g/dL (12.0-16.0); Mean Corpuscular HGB CONC 32.3 g/dL (32.0-36.0); Mean Corpuscular Hemoglobin 29.1 pg (27.0-31.0); Mean Corpuscular Volume 90.1 fL (78.0-98.0); Mean Platelet Volume 8.4 fL (7.4-10.4); Platelet Count 240 thou/uL (130-400); RBC Distribution Width 12.4 % (11.5-14.5); White Blood Cell (WBC) Count 4.9 thou/uL (4.8-10.8)
[2018-01-03] MEDS ORDERED: Polyethylene Glycol 3350 17 GM Packet PO SCH (09:00)
--- NOTE | 2018-01-03 13:35 | PRG ---
DATE OF SERVICE: 01/03/2018 HISTORY: Marisa Kuhn is doing well today. She is still having pain in right upper quadrant. She has had one large bowel movement. She has had mag citrate and CT scan with oral contrast. The CAT s can was normal except for constipation. There were no complications related to her cholecystectomy. I told her her pain in her right upper quadrant is due to atelectasis, postoperative cholecystectomy , possible duodenal ulcer and constipation, multifactorial. PHYSICAL EXAMINATION: LUNGS: Clear to auscultation. CARDIAC: Regular rate and rhythm without murmur or gallop. ABDOMEN: Soft, nontender. Mild tenderness in the right upper quadrant as expected postoperatively. Surgical wounds look good. She had a bloody bowel movement last night and otherwise has not had any bleeding. VITAL SIGNS: Temperature 97.9, 68, 109/76. LABORATORY: Her hemoglobin this morning is 11.9, stable. White count 4. ASSESSMENT AND PLAN: Doing well. Pain multifactorial as noted above. PLAN: Discharge home today.
[2018-01-03 14:16] VITALS: BP 110/78; TEMP 98.1
--- NOTE | 2018-01-03 23:30 | DIS ---
DATE OF ADMISSION: 01/02/2018 DATE OF DISCHARGE: 01/03/2018 DISCHARGE DIAGNOSES: Abdominal pain, constipation, duodenal ulcer, postoperative laparoscopic cholec ystectomy. PROCEDURES THIS HOSPITALIZATION: CT scan of abdomen and pelvis with p.o. and IV contrast, no complic ation related to her gallbladder surgery, constipation, otherwise unremarkable. CAT scan of abdomen and pelvis. Liver function tests normal. CBC normal. The patient had a bloody bowel movement after laxatives and normal after that. There was a small amount of blood in her toilet tissue and b owl. Hemoglobin remained stable. The patient was admitted from my office after complaining of pain. She was felt to have possible urinary retention initially one or two days ago. In and out cath rev ealed 200 mL of urine. Urine cultures are negative to date. She has complained of urinary complaint s and she has had a bladder suspension. She saw Dr. Nelson in her office on day of admission and her postvoid residual was normal. There are no signs of infection. did not fill if there is anything that she could offer the patient. The patient came to my office because of persistent abdom inal pain, admitted to the hospital because she did not feel like she can manage this at home. She u nderwent the above CAT scan of abdomen and pelvis, hydration IV for dehydration. She was tolerating her diet. Her pain was somewhat better. She is discharged home with MiraLax, fiber, PPI for duodena l ulcer, diagnosed with upper endoscopy by Dr. Finley prior to hospitalization; tramadol and Tylenol f or pain. Follow up in my office in 2-3 weeks.
[2018-01-04] MEDS ORDERED: Citrucel 500 MG TAB PO SCH (09:00)
== END 2018-01-03 13:50 | disposition home or self-care (01) | DRG 392 ==
LOC: SURG A 14:59
PROVIDERS: ADMIT Specialist; ATTEND Specialist
DX: R10.9 Unspecified abdominal pain (principal); E66.01 Morbid (severe) obesity due to excess calories; Z68.34 Body mass index [BMI] 34.0-34.9, adult; I10 Essential (primary) hypertension; K59.00 Constipation, unspecified; K26.9 Duodenal ulcer, unspecified as acute or chronic, without hemorrhage or perforation
CPT/HCPCS: 36415; 74177; 80053; 80500; 81001; 85025; 87086; J0131; J1885

== ENCOUNTER 2018-07-17 15:49 | Emergency (ER) | payer OTHER ==
[2018-07-17] MEDS ORDERED: Proparacaine 0.5% Opth 15 ML BOT ONE (15:58)
[2018-07-17] MEDS ORDERED: Fluorescein Opthalmic Strip ONE (16:00)
== END 2018-07-17 16:18 | disposition home or self-care (01) ==
LOC: SCSER 15:49
DX: Z04.1 Encounter for examination and observation following transport accident (principal); F17.210 Nicotine dependence, cigarettes, uncomplicated; V79.9XXA Bus occupant (driver) (passenger) injured in unspecified traffic accident, initial encounter
CPT/HCPCS: 99283

== ENCOUNTER 2019-11-18 13:13 | Outpatient (CLI) | payer OTHER ==
[2019-11-19 15:58] LABS: SARS-CoV-2 MS2 Positive; SARS-CoV-2 N Gene Negative; SARS-CoV-2 S Gene Negative; SARS-CoV-2 by NAA Not Detected (NotDetected); SARS-CoV-2 orf1ab Negative
== END 2019-11-18 13:14 | disposition home or self-care (01) ==
LOC: LABSCS 13:13
PROVIDERS: ATTEND Surgery
DX: K21.9 Gastro-esophageal reflux disease without esophagitis (principal); Z20.828 Contact with and (suspected) exposure to other viral communicable diseases
CPT/HCPCS: 87635; U0003